=== PATIENT | female | born 1970 | race Caucasian/White ===

== ENCOUNTER 2023-11-28 20:08 | Emergency (ER) | payer MEDICARE ==
[~2023-11-28] VITALS: Ht 177.8 cm; Wt 63.5 kg
[2023-11-28] MEDS ORDERED: MAG HYDROX/AL HYDROX/SIMETH 30 ML UDC ONE (22:41)
[2023-11-28] MEDS ORDERED: LIDOCAINE 5% (PATCH) 1 EA PATCH TP ONE (22:42)
[2023-11-28] MEDS ORDERED: LIDOCAINE VISCOUS 2% UD 15 ML UDC ONE (22:42)
[2023-11-28] MEDS ORDERED: CYCLOBENZAPRINE 10 MG TABLET ONE (22:43)
[2023-11-28] MEDS ORDERED: CYCLOBENZAPRINE 10 MG TABLET PO ONE (23:00)
[2023-11-28] MEDS ORDERED: MAG HYDROX/AL HYDROX/SIMETH 30 ML UDC PO ONE (23:00)
[2023-11-28] MEDS ORDERED: LIDOCAINE VISCOUS 2% UD 15 ML UDC MM ONE (23:00)
[2023-11-28 23:29] LABS: BASOPHILS % (AUTO) 0.1 % (0.0-2.0); EOSINOPHILS % (AUTO) 0.6 % (0.0-6.0); HEMATOCRIT 35 % (33-45); HEMOGLOBIN 11.5 g/dL (11.5-14.8); LYMPHOCYTES # (AUTO) 1.7 K/uL (0.8-4.8); MEAN CORPUSCULAR HEMOGLOBIN 28 PG (26.0-33.0); MEAN CORPUSCULAR HGB CONC 33 g/dl (31.0-36.0); MEAN CORPUSCULAR VOLUME 85 fL (82-100); MONOCYTES # (AUTO) 0.4 K/uL (0.1-1.30); MONOCYTES % (AUTO) 8.3 % (2.0-12.0); NEUTROPHILS # (AUTO) 2.9 K/uL (1.8-8.9); PLATELET COUNT (AUTO) 234 K/uL (150-450); RED BLOOD CELL COUNT(AUTO) 4.07 MIL/uL (4.0-5.2); RED CELL DISTRIBUTION WIDTH 14.2 % (11.5-15.0); WHITE BLOOD COUNT (AUTO) 5.1 K/uL (4.3-11.0)
[2023-11-28 23:55] LABS: CALCIUM, SERUM 9.7 mg/dL (8.5-10.1); CARBON DIOXIDE 26 mmol/L (21-32); CHLORIDE 98 mmol/L (98-107); CREATININE 0.7 mg/dL (0.6-1.3); GLUCOSE 105 mg/dL (74-106); POTASSIUM 4.1 mmol/L (3.5-5.1); SODIUM SERUM 134 mmol/L (136-145); UREA NITROGEN, BLOOD 12 mg/dL (7-18)
[2023-11-29 00:06] LABS: NT-PRO BNP 10 pg/mL (0-125)
[2023-11-29] MEDS ORDERED: CYCL5TAB PO (01:11)
[2023-11-29] MEDS ORDERED: PANT20TA2 PO (01:11)
[2023-11-29] MEDS ORDERED: MAG-55 PO (01:11)
[2023-11-29 01:34] VITALS: BP 128/70; TEMP 97.7; O2SAT 98
== END 2023-11-29 01:42 | disposition home or self-care (01) ==
LOC: ER 20:13
DX: R10.13 Epigastric pain (principal); M62.838 Other muscle spasm; Z79.899 Other long term (current) drug therapy
CPT/HCPCS: 36415; 71045-TC; 80048-TC; 83735-TC; 83880; 84484-TC; 85025-TC